=== PATIENT | male | born 1980 | race Caucasian/White ===

== ENCOUNTER 2022-09-16 12:25 | Emergency (ER) | payer SELFPAY ==
[~2022-09-16] VITALS: Ht 190.5 cm; Wt 81.6 kg
[2022-09-16] VITALS (7 sets, daily range): BP systolic 111–133; BP diastolic 82–92
[~2022-09-16 12:25] MED LIST: FLEXERIL OR; FLEXERIL PO; LORTAB 10 PO; LORTAB 5 OR; LORTAB5 PO; MEDDOSEPAK OR; NAPROSYN500 MG OR; NAPROSYN500 MG PO; NO; NO HOME MEDS; NO MEDS; TYLENOL500 MG OR; ULTRAM50 M1 PO; ZOFRAN4 MG/TAB PO; [UNRECOGNIZED DRUG - OTHER]
[2022-09-16] MEDS ORDERED: KEFLEX500 MG PO (16:11)
== END 2022-09-16 16:10 | disposition home or self-care (01) | DRG 605 ==
LOC: ED 12:25
PROC: 0HQGXZZ Repair Left Hand Skin, External Approach (ICD-10-PCS; principal; 2022-09-16)
DX: S61.317A Laceration without foreign body of left little finger with damage to nail, initial encounter (principal); W45.8XXA Other foreign body or object entering through skin, initial encounter; Y93.G1 Activity, food preparation and clean up; F17.210 Nicotine dependence, cigarettes, uncomplicated

== ENCOUNTER 2022-10-04 10:10 | Emergency (ER) | payer SELFPAY ==
[~2022-10-04] VITALS: Ht 190.5 cm; Wt 76.4 kg
[~2022-10-04 10:10] MED LIST changes: +KEFLEX500 MG PO
[2022-10-04 10:17] VITALS: BP 140/80
[2022-10-04 10:42] LABS: BASO% 1.1 % (0-3); EOS% 6.3 % (0-8); HEMOGLOBIN 16.6 g/dl (14.0-18.0); IMMATURE GRANULOCYTES 0.2 % (0.0-5.0); LYMPH% 13.2 % (15-41); MEAN CORPUSCULAR HGB 29.9 pG CALC (26.0-32.0); MEAN CORPUSCULAR HGB CONC 33.1 g/dL CAL (32.0-36.0); MONO% 5.3 % (2-13); NEUT# 4.71 thou/uL (1.82-7.42); NEUT% 73.9 % (42-76); RED BLOOD COUNT 5.56 mill/uL (4.70-6.10); RED CELL DISTRI WIDTH 12.4 % (11.5-15.5)
[2022-10-04 10:48] LABS: HEMATOCRIT 50.2 % (39.0-50.0); MEAN CELL VOLUME 90.3 fL CALC (80.0-100.0)
[2022-10-04 11:03] VITALS: BP 122/83
[2022-10-04 11:19] LABS: ALBUMIN 4.7 g/dL (3.2-5.0); ALKALINE PHOSPHATASE 44 u/l (38-126); ANION GAP 12 (6-22 (CALC)); BUN 11 mg/dL (9-20); BUN/CREATININE RATIO 11 (12-20 (CALC)); CARBON DIOXIDE 26 mmol/l (22-30); CHLORIDE 106 mmol/l (95-108); ETHYL ALCOHOL 0 mg/dl (0-30); GFR FOR AFR.AMER. > 60 ML/MIN (>=60 (CALC)); GFR OTHER RACES > 60 ML/MIN (>=60 (CALC)); POTASSIUM 4.2 mmol/l (3.5-5.1); SGOT/AST 94 u/l (17-59); SODIUM 140 mmol/l (137-146); TOTAL PROTEIN 7.7 g/dL (6.3-8.2)
[2022-10-04 11:21] LABS: BILIRUBIN, TOTAL 2.8 mg/dL (0.2-1.3)
[2022-10-04 11:30] VITALS: BP 133/83
[2022-10-04 12:30] VITALS: BP 135/86
[2022-10-04 12:47] LABS: URINE COLOR DK. YELLOW; URINE GLUCOSE - DIPSTICK NEGATIVE (NEGATIVE); URINE KETONE Negative (NEGATIVE); URINE PROTEIN - DIPSTICK 30 mg/dL (NEG-TRACE)
[2022-10-04 12:48] LABS: URINE BLOOD DIPSTICK NEGATIVE (NEGATIVE); URINE LEUK ESTERASE NEGATIVE (NEGATIVE); URINE NITRITE - DIPSTICK NEGATIVE (Negative)
[2022-10-04 12:59] LABS: URINE HYALINE CAST FEW lpf (NONE-RARE); URINE MUCUS FEW hpf (NONE-FEW); URINE RBC 0-2 RBC/hpf (0-5); URINE WBC 0-2 WBC/hpf (0-5)
[2022-10-04 13:00] VITALS: BP 145/94
[2022-10-04 13:47] VITALS: BP 145/94
== END 2022-10-04 13:59 | disposition home or self-care (01) | DRG 103 ==
LOC: ED 10:10
PROVIDERS: Family Medicine
DX: R51.9 Headache, unspecified (principal); R11.10 Vomiting, unspecified; R74.01 Elevation of levels of liver transaminase levels; S61.217D Laceration without foreign body of left little finger without damage to nail, subsequent encounter; F17.210 Nicotine dependence, cigarettes, uncomplicated; X58.XXXD Exposure to other specified factors, subsequent encounter; Z20.822 Contact with and (suspected) exposure to COVID-19

== ENCOUNTER 2023-04-13 00:30 | Emergency (ER) | payer SELFPAY ==
[~2023-04-13] VITALS: Ht 190.5 cm; Wt 68.0 kg
[2023-04-13] MEDS ORDERED: HALOPERIDOL LACTATE 5 MG/ML SDV IM ONE (00:50)
[2023-04-13] MEDS ORDERED: LORazepam 2 MG/ML IM ONE (00:50)
[2023-04-13] MEDS ORDERED: DiphenhydrAMINE HCL 50 MG/ML SDV IM ONE (00:50)
[2023-04-13 01:52] LABS: EOS% 6.2 % (0-8); HEMATOCRIT 46.3 % (39.0-50.0); HEMOGLOBIN 15.6 g/dl (14.0-18.0); LYMPH% 35.1 % (15-41); MEAN CELL VOLUME 91.5 fL CALC (80.0-100.0); MEAN CORPUSCULAR HGB 30.8 pG CALC (26.0-32.0); MEAN CORPUSCULAR HGB CONC 33.7 g/dL CAL (32.0-36.0); MONO% 7.7 % (2-13); NEUT# 3.37 thou/uL (1.82-7.42); RED BLOOD COUNT 5.06 mill/uL (4.70-6.10); RED CELL DISTRI WIDTH 12.1 % (11.5-15.5)
[2023-04-13 02:26] LABS: ALBUMIN 4.7 g/dL (3.2-5.0); ALKALINE PHOSPHATASE 49 u/l (38-126); ANION GAP 16 (6-22 (CALC)); BUN 10 mg/dL (9-20); BUN/CREATININE RATIO 11 (12-20 (CALC)); CARBON DIOXIDE 21 mmol/l (22-30); CHLORIDE 110 mmol/l (95-108); ETHYL ALCOHOL 277 mg/dl (0-30); GFR FOR AFR.AMER. > 60 ML/MIN (>=60 (CALC)); GFR OTHER RACES > 60 ML/MIN (>=60 (CALC)); POTASSIUM 3.8 mmol/l (3.5-5.1); SGOT/AST 116 u/l (17-59); SODIUM 143 mmol/l (137-146); TOTAL PROTEIN 7.7 g/dL (6.3-8.2)
[2023-04-13 02:29] LABS: BILIRUBIN, TOTAL 1.1 mg/dL (0.2-1.3)
[2023-04-13 14:20] VITALS: BP 125/93
== END 2023-04-13 14:35 | DRG 605 ==
LOC: ED 00:30
PROVIDERS: Family Medicine
PROC: 0HQEXZZ Repair Left Lower Arm Skin, External Approach (ICD-10-PCS; principal; 2023-04-13)
DX: S51.812A Laceration without foreign body of left forearm, initial encounter (principal); F17.200 Nicotine dependence, unspecified, uncomplicated; X78.9XXA Intentional self-harm by unspecified sharp object, initial encounter
CPT/HCPCS: S0166

== ENCOUNTER 2023-11-29 18:41 | Emergency (ER) | payer SELFPAY ==
[~2023-11-29] VITALS: Ht 190.5 cm; Wt 63.5 kg
[2023-11-29 18:44] VITALS: BP 130/85
[2023-11-29] MEDS ORDERED: HALOPERIDOL LACTATE 5 MG/ML SDV IM ONE (18:45)
[2023-11-29] MEDS ORDERED: LORazepam 2 MG/ML IV ONE (18:45)
[2023-11-29] MEDS ORDERED: LORazepam 2 MG/ML ONE (18:45)
[2023-11-29 18:46] VITALS: BP 137/85
[2023-11-29] MEDS ORDERED: SODIUM CHLORIDE 0.9% 1,000 ML IV ONE (18:50)
[2023-11-29 19:01] VITALS: BP 110/58
[2023-11-29 19:02] LABS: BASO% 0.9 % (0-3); EOS% 6.4 % (0-8); HEMATOCRIT 45.6 % (39.0-50.0); HEMOGLOBIN 15.1 g/dl (14.0-18.0); IMMATURE GRANULOCYTES 0.3 % (0.0-5.0); LYMPH% 27.5 % (15-41); MEAN CELL VOLUME 91.9 fL CALC (80.0-100.0); MEAN CORPUSCULAR HGB 30.4 pG CALC (26.0-32.0); MEAN CORPUSCULAR HGB CONC 33.1 g/dL CAL (32.0-36.0); NEUT# 3.76 thou/uL (1.82-7.42); NEUT% 56.9 % (42-76); RED BLOOD COUNT 4.96 mill/uL (4.70-6.10); RED CELL DISTRI WIDTH 12.2 % (11.5-15.5)
[2023-11-29 19:12] LABS: ALBUMIN 4.5 g/dL (3.2-5.0); BILIRUBIN, TOTAL 1.3 mg/dL (0.2-1.3); CREATININE 1.1 mg/dL (0.7-1.3); POTASSIUM 3.7 mmol/l (3.5-5.1); TOTAL PROTEIN 7.4 g/dL (6.3-8.2)
[2023-11-29 20:14] LABS: URINE BILIRUBIN - DIPSTICK Negative (NEGATIVE); URINE BLOOD DIPSTICK Negative (NEGATIVE); URINE COLOR Yellow; URINE GLUCOSE - DIPSTICK Negative (NEGATIVE); URINE KETONE Negative (NEGATIVE); URINE LEUK ESTERASE Negative (NEGATIVE); URINE NITRITE - DIPSTICK Negative (Negative); URINE PH 5.5 (4.5-8.0); URINE PROTEIN - DIPSTICK Negative (NEG-TRACE); URINE SPECIFIC GRAVITY 1.015; URINE UROBILINOGEN - DIPSTICK 0.2 E.U./dL (0.2)
[2023-11-29 21:55] VITALS: BP 117/84
[2023-11-29 22:03] VITALS: BP 117/84
== END 2023-11-29 22:12 | disposition home or self-care (01) | DRG 101 ==
LOC: ED 18:41
PROVIDERS: Nurse Practitioner
DX: R56.9 Unspecified convulsions (principal); S00.83XA Contusion of other part of head, initial encounter; F10.129 Alcohol abuse with intoxication, unspecified; Y90.7 Blood alcohol level of 200-239 mg/100 ml; F14.10 Cocaine abuse, uncomplicated; B19.20 Unspecified viral hepatitis C without hepatic coma; F17.200 Nicotine dependence, unspecified, uncomplicated; V18.0XXA Pedal cycle driver injured in noncollision transport accident in nontraffic accident, initial encounter; Y93.55 Activity, bike riding; Z59.00 Homelessness unspecified
CPT/HCPCS: J1953; J2060